=== PATIENT | female | born 1945 | race Caucasian/White ===

== ENCOUNTER → 2017-08-05 | Day surgery (SDC) | payer OTHER ==
[~2017-08-05] VITALS: Ht 165.1 cm; Wt 71.7 kg
[~2017-08-05] MED LIST: ASPIRIN CHEWABL81 MG PO; EYE VITAMIN PO; VITAMIN D5000 UNIT PO; VITAMINS FOR HA1 CAP PO
--- NOTE | ~2017-08-05 | O ---
[place], [place] OPERATIVE NOTE NAME: JESUS CLEMENTE UNIT #: [id number] ROOM: DOCTOR: CATHIE FUNES MD BIRTHDATE: [birth year] DOS: 08/05/2017 PREOPERATIVE DIAGNOSIS: Cataract, left eye. POSTOPERATIVE DIAGNOSIS: Cataract, left eye. OPERATION: Extracapsular cataract extraction by phacoemulsification with posterior chamber intraocular lens implantation, left eye. ANESTHESIA: Monitored standby. OPERATIVE FINDINGS AND PROCEDURE: 2% Xylocaine topical anesthetic gel was applied to the eye in the preop area. The patient was taken to the operating room and prepped and draped in the standard fashion for sterile intraocular surgery. A time out procedure was performed verifying correct patient, correct site and corrects lens with Derrick Funes M.D. The operating microscope was swung into position and the lid speculum was inserted. Using a Alix paracentesis blade, a paracentesis was made through clear cornea. Viscoelastic was used to fill the anterior chamber. Using a metal keratome a 2.4 mm self-sealing clear corneal cataract incision was made temporally at the limbus. Using a pre-bent 25 gauge cystotome needle, a standard continuous curvilinear capsulorrhexis was performed. The anterior capsule was removed with forceps. The lens nucleus was hydrodissected and phacoemulsified in the posterior chamber. Cortical material was removed with the irrigation aspiration hand piece and the posterior capsule was then polished with a curet under irrigation. The posterior chamber and capsular bag were filled with viscoelastic. A posterior chamber intraocular lens manufactured by: [employer], Model #[id number], and 23.0 diopters in strength were then inserted into the posterior chamber and within the capsular bag using the lens cartridge and injector system. Viscoelastic was removed using the irrigation aspiration handpiece. The anterior chamber was filled with balanced salt solution through the paracentesis. Both the paracentesis site and cataract incisions were hydrated with BSS and verified to be water-tight and self-sealing. The incision checked to be water-tight using a Weck-Damaris sponge. The integrity of the cataract wound and ocular tension were checked. Lid speculum and drapes were removed. The patient was transferred from the operating room to the recovery room in satisfactory condition. [place], [place] OPERATIVE NOTE NAME: JESUS CLEMENTE UNIT #: [id number] ROOM: DOCTOR: CATHIE FUNES MD BIRTHDATE: [birth year] CATHIE FUNES MD CM:OPRECORD:OPERATIVE NOTE 1223 [id number] CATHIE FUNES MD 08/05/17 1239 interface
[2017-08-05 11:10] VITALS: BP 143/71
[2017-08-05 12:18] VITALS: BP 114/61
[2017-08-05 12:33] VITALS: BP 112/52
[2017-08-05 12:40] VITALS: BP 106/50
== END | disposition home or self-care (01) ==
LOC: SDC 07-31 11:00
DX: H25.812 Combined forms of age-related cataract, left eye (principal); Z90.49 Acquired absence of other specified parts of digestive tract; E78.00 Pure hypercholesterolemia, unspecified; Z88.0 Allergy status to penicillin; Z88.8 Allergy status to other drugs, medicaments and biological substances

== ENCOUNTER 2022-09-06 09:52 | Emergency (ER) | payer OTHER ==
[~2022-09-06] VITALS: Ht 162.5 cm; Wt 64.9 kg
[2022-09-06] MEDS ORDERED: CEPHALEXIN500 M1 PO (12:13)
== END 2022-09-06 13:30 | disposition home or self-care (01) ==
LOC: ED 09:52
DX: S01.81XA Laceration without foreign body of other part of head, initial encounter (principal); E78.00 Pure hypercholesterolemia, unspecified; Z88.0 Allergy status to penicillin; Z88.8 Allergy status to other drugs, medicaments and biological substances; Z90.49 Acquired absence of other specified parts of digestive tract; Z98.890 Other specified postprocedural states; W01.10XA Fall on same level from slipping, tripping and stumbling with subsequent striking against unspecified object, initial encounter; Y93.89 Activity, other specified; Y92.89 Other specified places as the place of occurrence of the external cause; Y99.8 Other external cause status